=== PATIENT | male | born 1945 | race Caucasian/White ===

== ENCOUNTER 2021-05-03 16:39 | Observation (INO) | payer OTHER, MEDICARE ==
[~2021-05-03] VITALS: Ht 167.6 cm; Wt 100.0 kg
--- NOTE | 2021-05-03 19:05 | NUR ---
ADMITTED TO ROOM 327. A&O. O2 AT 3L BASELINE. INT TO LT F/A INTACT. CHANGED CLOTHING. SEE ADMISSION.
[2021-05-03 19:13] VITALS: BP 140/65; PULSE 99; TEMP 98.3
[2021-05-03] MEDS ORDERED: ALEVE 220MG220 MG PO (23:11)
[2021-05-03] MEDS ORDERED: ZYRTEC 10MG10 MG PO (23:12)
[2021-05-03] MEDS ORDERED: BREO ELLIPTA 21 EACH IH (23:12)
[2021-05-03] MEDS ORDERED: ZYLOPRIM 100MG100 MG PO (23:12)
[2021-05-03] MEDS ORDERED: CALCIUM 600 MG1 EAC2 PO (23:12)
[2021-05-03] MEDS ORDERED: NORVASC 5MG5 MG/TAB PO (23:12)
[2021-05-03] MEDS ORDERED: FLEXERIL 1010 MG/TAB PO (23:13)
[2021-05-03] MEDS ORDERED: NEURONTIN300 MG/CAP PO (23:15)
[2021-05-03] MEDS ORDERED: IPRATROPIUM BROM3 M1 IH (23:15)
[2021-05-03] MEDS ORDERED: PRAVACHOL80 MG PO (23:16)
[2021-05-03] MEDS ORDERED: PRINIVIL40 MG PO (23:16)
[2021-05-03] MEDS ORDERED: XALATAN EYE DROPS OU (23:16)
[2021-05-03] MEDS ORDERED: PRILOSEC 20MG20 MG PO (23:16)
[2021-05-03] MEDS ORDERED: DEMADEX10 MG PO (23:17)
[2021-05-03 23:54] VITALS: BP 143/54; PULSE 101; TEMP 98.2
--- NOTE | 2021-05-04 01:39 | NUR ---
OBTAINED STOOL FOR GI PANEL. NOTED LOOSE DARK RED.
[2021-05-04 04:09] VITALS: BP 123/45; PULSE 97; TEMP 98.5
[2021-05-04 06:26] LABS: MEAN CELL VOLUME 87 fl (80.0-100.0); MEAN CORPUSCULAR HEMOGLOBIN 27 pg (27-31); MEAN CORPUSCULAR HGB CONC 31 g/dl (33.0-37.0); MEAN PLATELET VOLUME 10.7 fl (7.4-10.4); PLATELET COUNT 361 K/mm3 (130-400); RED BLOOD COUNT 4.12 M/mm3 (4.20-5.60); REDCELL DISTRIBUTION WIDTH-CV 15.6 % (11.5-14.5)
[2021-05-04 06:30] LABS: HEMATOCRIT 35.8 % (42.0-52.0)
[2021-05-04 06:45] LABS: CREATININE, serum 1.66 mg/dL (0.72-1.25); MAGNESIUM 1.9 mg/dL (1.6-2.6); POTASSIUM 4.5 mmol/L (3.5-4.5)
[2021-05-04 07:34] LABS: ANISOCYTOSIS 1+; BASOPHIL 1 % (0-2); HYPOCHROMIA 2+; LYMPHOCYTE 14 % (20.0-51.0); NEUTROPHILS 76 % (42.0-75.2); PLATELET ESTIMATE NORMAL (NORMAL)
[2021-05-04 07:38] LABS: HOWELL-JOLLY BODIES 1+
[2021-05-04 08:14] VITALS: BP 130/57; PULSE 89; TEMP 97.9
--- NOTE | 2021-05-04 08:42 | NUR ---
Pt assessment complete. Pt is A/O x4. His breathing is even and unlabored on 2L O2 via NC. Pt denies SOB at this time. No N/V, reports two episodes of diarrhea overnight, medium watery stools. Only pain he reports is "chronic back pain". Tolerating clear liquids without issues. No needs at this time. Call light within reach.
--- NOTE | 2021-05-04 11:18 | NUR ---
Initial visit; Patient thanked Account Development Representative for stopping and letting him know of the availability of spiritual care.
[2021-05-04 11:57] VITALS: BP 126/58; PULSE 90; TEMP 98.6
--- NOTE | 2021-05-04 15:35 | NUR ---
SW met with pt to complete intake. Pt reports living with ,Ximena [phone]. The client reports he is independent on all ADLs and but does use a cane, 3L of o2, CPAP. He reports his PCP is adrianne Chamberlain and gets his medications from [facility]. Pt reports no DPOA-HC and is DNR. DC: Home.
[2021-05-04 16:00] VITALS: BP 114/44; PULSE 79; TEMP 98.1
--- NOTE | 2021-05-04 18:35 | NUR ---
Pt tolerated [facility] soft diet without issues. Denies having any further BM's during this shift. No N/V. No further needs, call light within reach.
--- NOTE | 2021-05-04 20:42 | NUR ---
PT RESTING IN B ED. DENIES PAIN OR BLOODY STOOLS TODAY. O2 3L NC BASELINE. NO RESP DISTRESS.
[2021-05-04 20:57] VITALS: BP 146/63; PULSE 95; TEMP 97.8
[2021-05-05 00:04] VITALS: BP 130/63; PULSE 95; TEMP 98.2
[2021-05-05 03:42] VITALS: BP 137/57; PULSE 83; TEMP 98.1
[2021-05-05 06:28] LABS: BASO # 0.1 K/mm3 (0.0-0.2); BASO % 0.6 % (0.0-2.0); EOS # 0.6 K/mm3 (0.0-0.7); EOS % 3.9 % (0.0-4.0); GRAN # 9.7 K/mm3 (1.4-6.5); GRAN % 64.8 % (42.2-75.2); HEMOGLOBIN 10.3 g/dl (13.5-18.0); LYMPH % 19.9 % (20.0-51.0); MEAN CELL VOLUME 89 fl (80.0-100.0); MEAN CORPUSCULAR HEMOGLOBIN 27 pg (27-31); MEAN CORPUSCULAR HGB CONC 30 g/dl (33.0-37.0); MEAN PLATELET VOLUME 10.8 fl (7.4-10.4); MONO # 1.6 K/mm3 (0.1-0.6); MONO % 10.5 % (1.7-9.3); PLATELET COUNT 371 K/mm3 (130-400); RED BLOOD COUNT 3.88 M/mm3 (4.20-5.60); REDCELL DISTRIBUTION WIDTH-CV 15.8 % (11.5-14.5)
[2021-05-05 06:31] LABS: HEMATOCRIT 34.6 % (42.0-52.0)
[2021-05-05 06:44] LABS: CALCIUM 8.2 mg/dL (8.4-10.2); CREATININE, serum 1.32 mg/dL (0.72-1.25); POTASSIUM 4.5 mmol/L (3.5-4.5)
--- NOTE | 2021-05-05 07:30 | NUR ---
Pt doing well, up moving independently in his room. Pt reports that he has not had a bowel movement in about 24 hours, did have a scant amount over the night and reports that it was normal in color. PT IV to his left forearm appears infiltrated. IV fluids removed at this time. Pt stated that he is not a breakfast eater and denies wanting anything. Gave him some fresh ice water and coffee per his request. No other needs, will continue to monitor
[2021-05-05 07:36] VITALS: BP 148/62; PULSE 78; TEMP 97.7
--- NOTE | 2021-05-05 09:30 | NUR ---
Pt continues to do well. Gave him an ice pack for his left arm where IV was for comfort. Pt reports that his arm feels a little swollen. Pt denies having any pain, no needs verbalized, call light within reach
[2021-05-05 11:53] VITALS: BP 158/75; PULSE 88; TEMP 98.6
--- NOTE | 2021-05-05 15:20 | NUR ---
Reviewed discharge instructions with pt to include making his follow up appointments and starting his medications back up. Pt verbalized understanding. INT removed from left forearm. Pt not having any complaints of pain at this time and is ready to go home. Pts son is coming to get him, informed him to notify nursing when his ride arrives.
[2021-05-06 08:44] LABS: PATHOLOGY DIFF REVIEW OK +
== END 2021-05-05 15:43 | disposition home or self-care (01) ==
LOC: SURG 16:39
PROVIDERS: Student in an Organized Health Care Education/Training Program; ADMIT Internal Medicine
DX: K57.30 Diverticulosis of large intestine without perforation or abscess without bleeding (principal); K52.9 Noninfective gastroenteritis and colitis, unspecified; R00.0 Tachycardia, unspecified; D72.829 Elevated white blood cell count, unspecified; N17.9 Acute kidney failure, unspecified; R65.10 Systemic inflammatory response syndrome (SIRS) of non-infectious origin without acute organ dysfunction; I10 Essential (primary) hypertension; J44.9 Chronic obstructive pulmonary disease, unspecified; E78.5 Hyperlipidemia, unspecified; M10.9 Gout, unspecified; K21.9 Gastro-esophageal reflux disease without esophagitis; Z79.899 Other long term (current) drug therapy; Z85.72 Personal history of non-Hodgkin lymphomas; Z87.891 Personal history of nicotine dependence; Z85.71 Personal history of Hodgkin lymphoma
CPT/HCPCS: 99223-AI; 99239; G0378; J7030